=== PATIENT | female | born 1965 | race Caucasian/White ===

== ENCOUNTER 2024-07-17 14:39 | Emergency (ER) | payer OTHER ==
[2024-07-17] MEDS ORDERED: Cyclobenzaprine 10 MG TAB ONE (16:03)
== END 2024-07-17 16:08 | disposition home or self-care (01) ==
LOC: BURERS 14:39
DX: S29.011A Strain of muscle and tendon of front wall of thorax, initial encounter (principal); I10 Essential (primary) hypertension; W06.XXXA Fall from bed, initial encounter
CPT/HCPCS: 72072; 99283